=== PATIENT | female | born 1965 | race Caucasian/White ===

== ENCOUNTER 2019-02-18 11:55 | Day surgery (SDC) | payer BC ==
[~2019-02-18 11:55] MED LIST: ceFAZolin 1 GM in Premix Bag 1 BAG IV ONE
--- NOTE | 2019-02-18 13:01 | PCM.PREANE ---
Preanesthetic Assessment - Anesthesia/Transfusion/Family Hx Anesthesia History: Prior Anesthesia Without Reaction Family History of Anesthesia Reaction: No Transfusion History: No Prior Transfusion(s) - Review of Systems General: No Symptoms Pulmonary: No Symptoms Cardiovascular: No Symptoms Gastrointestinal: No Symptoms Other: Reports: Depression - Physical Assessment Vital Signs: Last Vital Signs Temp 96.6 F 02/18/19 12:18 Pulse 76 02/18/19 12:18 Resp 18 02/18/19 12:18 BP 143/87 H 02/18/19 12:18 Pulse Ox 99 02/18/19 12:18 Height: 5 ft Weight: 76.657 kg ASA Class: 2 Mental Status: Alert & Oriented x3 Airway Class: Mallampati = 2 Dentition: Reports: Dentures (upper) ROM/Head Extension: Full Lungs: Clear to Auscultation, Normal Respiratory Effort Cardiovascular: Regular Rate, Regular Rhythm - Allergies Allergies/Adverse Reactions: Allergies Allergy/AdvReac Type Severity Reaction Status Date / Time adhesive tape Allergy Rash Verified 02/17/19 08:41 aloe vera [From Dermoplast] Allergy Blisters Verified 02/17/19 08:41 benzocaine [From Dermoplast] Allergy Blisters Verified 02/17/19 08:41 lanolin [From Dermoplast] Allergy Blisters Verified 02/17/19 08:41 losartan Allergy Nausea Verified 02/17/19 08:41 - Blood Blood Available: No - Anesthesia Plan Pre-Op Medication Ordered: None - Acknowledgements Anesthesia Type Planned: MAC Pt an Appropriate Candidate for the Planned Anesthesia: Yes Alternatives and Risks of Anesthesia Discussed w Pt/Guardian: Yes Pt/Guardian Understands and Agrees with Anesthesia Plan: Yes PreAnesthesia Questionnaire HEENT History: Reports: Other (See Below) Other HEENT History: wears glasses, upper denture Cardiovascular History: Reports: Hypertension Respiratory History: Reports: Asthma Gastrointestinal History: Reports: Chronic Constipation, GERD Genitourinary History: Reports: None SOAP MIXER History: Reports: , Prolapsed Uterus Musculoskeletal History: Reports: Back Pain, Chronic, Osteoarthritis Other Musculoskeletal History: DDD, Neurological History: Reports: Other (See Below) Other Neuro History: restless leg syndrome Psychiatric History: Reports: Anxiety, Depression Endocrine/Metabolic History: Reports: Hypothyroidism, Obesity/BMI 30+ Hematologic History: Reports: None Immunologic History: Reports: None Oncologic (Cancer) History: Reports: None Dermatologic History: Reports: None - Past Surgical History Head Surgeries/Procedures: Reports: None HEENT Surgical History: Reports: None Cardiovascular Surgical History: Reports: None Respiratory Surgical History: Reports: None GI Surgical History: Reports: None Female Surgical History: Reports: Other (See Below) Other Female Surgeries/Procedures: rectocele and entrocele repair for prolapse Endocrine Surgical History: Reports: None Neurological Surgical History: Reports: None Musculoskeletal Surgical History: Reports: Hip Replacement Other Musculoskeletal Surgeries/Procedures:: lizzeth hip replacement Oncologic Surgical History: Reports: None Dermatological Surgical History: Reports: None - SUBSTANCE USE Smoking Status *Q: Current Every Day Smoker Tobacco Use Within Last Twelve Months: Cigarettes Recreational Drug Use History: No - HOME MEDS Home Medications: Home Meds Albuterol Sulfate [Proair Hfa] 1 - 2 puff INH ASDIRECTED PRN 02/17/19 [History] Celecoxib 200 mg PO DAILY 02/17/19 [History] Cyanocobalamin (Vitamin B12) [Vitamin B12] 1,000 mcg PO DAILY 02/17/19 [History] Diclofenac Sodium [Voltaren 1% Gel] 1 applic TOP ASDIRECTED PRN 02/17/19 [ History] Diclofenac Sodium [Voltaren] 50 mg PO BID PRN 02/17/19 [History] Fluticasone Propionate [Flonase Allergy Relief] 1 spray NASBOTH ASDIRECTED PRN 02/17/19 [History] Fluticasone Propionate [Flovent HFA] 2 puff INH BID 02/17/19 [History] Gabapentin [Neurontin] 3 tab PO BEDTIME 02/17/19 [History] Gabapentin [Neurontin] 600 mg PO ACLUNCH 02/17/19 [History] Ibuprofen 800 mg PO Q8H PRN 02/17/19 [History] Irbesartan 75 mg PO DAILY 02/17/19 [History] Levothyroxine Sodium 137 mcg PO DAILY 02/17/19 [History] Linaclotide [Linzess] 290 mcg PO ASDIRECTED PRN 02/17/19 [History] Minocycline HCl 100 mg PO BID 02/17/19 [History] Mylanta 1 dose PO ASDIRECTED PRN 02/17/19 [History] Omeprazole 40 mg PO DAILY PRN 02/17/19 [History] Pramipexole Di-HCl [Pramipexole Dihydrochloride] 2 tab PO BEDTIME 02/17/19 [ History] amLODIPine [Norvasc] 5 mg PO DAILY 02/17/19 [History] buPROPion [Wellbutrin] 100 mg PO DAILY 02/17/19 [History] busPIRone HCl [Buspirone HCl] 5 mg PO TID 02/17/19 [History] hydroCHLOROthiazide [Hydrochlorothiazide] 25 mg PO ASDIRECTED 02/17/19 [History] traZODone HCl [Trazodone HCl] 1 - 2 tab PO BEDTIME PRN 02/17/19 [History] - CURRENT (IN HOUSE) MEDS Current Meds: Current Medications Discontinued Medications Cefazolin Sodium/Dextrose 1 gm (/ Premix) 50 mls @ 100 mls/hr IV ONETIME ONE Stop: 02/18/19 09:51 Lidocaine HCl (Xylocaine-Mpf 1%) 10 ml INJECT ONETIME ONE Stop: 02/18/19 09:16
[2019-02-18] MEDS ORDERED: fentaNYL 100 MCG/2 ML SDV ONE (13:28)
[2019-02-18] MEDS ORDERED: Propofol 200 MG/20 ML SDV ONE (13:28)
[2019-02-18] MEDS ORDERED: Ondansetron 4 MG/2 ML SDV ONE (13:28)
[2019-02-18] MEDS ORDERED: Midazolam 1 MG/ML 2 ML SDV ONE (13:29)
[2019-02-18] MEDS ORDERED: ceFAZolin 1 GM Vial ONE (13:41)
[2019-02-18] MEDS ORDERED: Sodium Chloride 0.9% 20 ML ONE (13:41)
[2019-02-18] MEDS ORDERED: Lidocaine 1% 20 ML MDV ONE (13:48)
--- NOTE | 2019-02-18 14:39 | PCM.POSTAN ---
POST ANESTHESIA ASSESSMENT - MENTAL STATUS Mental Status: Alert - VITAL SIGNS Vital Signs: Last Vital Signs Temp 35.9 C 02/18/19 12:18 Pulse 76 02/18/19 12:18 Resp 18 02/18/19 12:18 BP 143/87 H 02/18/19 12:18 Pulse Ox 99 02/18/19 12:18 - RESPIRATORY Respiratory Status: Respiratory Rate WNL - CARDIOVASCULAR CV Status: Pulse Rate WNL - GASTROINTESTINAL GI Status: No Symptoms - PAIN Pain Score: 4 (Pressure lumbar area) - OBSERVATIONS Free Text/Narrative:: Doing well. No problems noted post. Direct admit to DS.
--- NOTE | 2019-02-18 14:45 | PCM48HPAN ---
Post Anesthesia Note - EVALUATION WITHIN 48HRS OF ANESTHETIC Vital Signs in Normal Range: Yes Patient Participated in Evaluation: Yes Respiratory Function Stable: Yes Airway Patent: Yes Cardiovascular Function Stable: Yes Hydration Status Stable: Yes Pain Control Satisfactory: Yes Nausea and Vomiting Control Satisfactory: Yes Mental Status Recovered: Yes Vital Signs: Last Vital Signs Temp 97.3 F 02/18/19 14:31 Pulse 63 02/18/19 14:31 Resp 16 02/18/19 14:31 BP 125/68 02/18/19 14:31 Pulse Ox 100 02/18/19 14:31 - COMMENTS/OBSERVATIONS Free Text/Narrative:: direct back to phase 2, no phase 1
[2019-02-18] MEDS ORDERED: Lactated Ringers 1,000 ML IV SCH (15:00)
[2019-02-18] MEDS ORDERED: Acetaminophen/HYDROcodone 325-10 MG Tab PO ONE (15:35)
--- NOTE | 2019-02-18 16:24 | CR ---
Lumbar spine: Six fluoroscopic spot views utilizing C-arm device was obtained centered to the lower thoracic spine. Study shows placement of electrodes stimulating wires which terminate at the T7- T9 position. No additional finding is seen. Impression: Procedural study as noted above. Diagnostic code #2 MTDD
--- NOTE | 2019-02-18 22:03 | OR ---
SURGEON: Angélica Perkins D.O. DATE OF PROCEDURE: 02/18/2019 PRIMARY SURGEON: Angélica Perkins D.O. ASSISTANTS: OR staff present: 1. Daya Duff CST. 2. Tay Mishra CRNA. 3. Brayan Fuentes RN. 4. Hina Newman RN. 5. Environmental Engineering AssistantElissa RT. WOUND CLASS: I. PREOPERATIVE DIAGNOSES: 1. Lumbar radiculopathy 2. Lumbar degenerative disk disease. 3.Peripheral neuropathy of bilateral lower extremities. 4.Lumbar spondylosis. 5. Thoracolumbar scoliosis. 6.Chronic thoracolumbar back pain POSTOPERATIVE DIAGNOSES: same PROCEDURES PERFORMED: 1. [employer] Infinion 16, 50 cm 16 contact trial lead placed to the top of T7 on the left. 2. [employer] Infinion 16, 50 cm 16 contact trial lead placed to the top of T7 on the right. 3. Fluoroscopic guidance for needle placement. 4. Local with oral Valium for sedation. PREOPERATIVE PAIN: 8/10. POSTOPERATIVE PAIN: All areas of pain covered by spinal cord stimulation therapy. PLAN: Follow up for reprogramming in the clinic tomorrow morning at 8:30. ANESTHESIA: MAC SCREENING QUESTIONS: The patient answered no to all the following questions: 1. Are you allergic to iodine, Betadine, or latex? 2. Do you have a bleeding disorder? 3. Are you on anti-inflammatories or blood thinners? 4. Are you ? 5. Do you have any current local or systemic infections? 6. Do you have any joint replacements, heart valve replacements or a pacemaker? DESCRIPTION OF PROCEDURE: The patient had the procedure thoroughly explained including risks, benefits, and alternatives. Consent was signed in my clinic indicating understanding and willingness to proceed. The patient presented to [facility] [place] and was escorted to the dressing room to disrobe and change into a hospital gown. Preoperative history and screening were performed by the nurse. Vital signs were taken and stable. The patient was set up with an IV prior to the procedure. The patient was brought back to the procedure room and placed in the prone position on the procedure room table. A pillow was placed under the abdomen in order to flatten the lumbar lordosis. The patient was positioned comfortably and there was no evidence of infection at the sites of needle insertion. The back was prepped with ChloraPrep and sterilely draped. All personnel in the operating room were dressed in appropriate attire including surgical scrubs, head and shoe covers. This was to ensure sterility while in the treatment room. During the time fluoroscopy was in use, all personnel in the operating room wore lead gan with thyroid collars. Sterile technique was used during the procedure. Prior to the start of the procedure, Ancef 1 gram, prophylactic antibiotic was administered IV. Skeletal landmarks were identified under fluoroscopic guidance. At all insertion sites, the skin and soft tissues were anesthetized with 2% lidocaine preservative-free with a sterile 27-gauge 1-1/2 inch needle. The epidural space was entered with a 14-gauge Tuohy epidural needle with loss-of- resistance technique. Under live fluoroscopic guidance, the 16 standard contact lead electrodes were advanced approximately to the midline at the top of the T7 vertebral body on the left and then the right. No CSF, no heme, and no paresthesia were noted. Testing by the neuromodulation clinical specialist revealed appropriate coverage of the patient's normal areas of pain. The leads were then secured to the skin with occlusive dressing. No complications were noted throughout the procedure and vital signs were stable. Then the patient was brought to the recovery room in stable condition. At that time, the patient had additional stimulation patterns programmed which covered all the normal areas of pain. The patient tolerated the procedure well and was released home with postoperative instructions for follow up in the clinic. The patient will fill out a pain diary throughout the week of the spinal cord stimulator trial. Additionally, prior to discharge, postoperative instructions were given to the patient and the patient voiced understanding, including understanding of those signs and symptoms that would require emergency care. TARA / CRUZ /[id number] ANETA
== END 2019-02-18 16:15 | disposition home or self-care (01) ==
LOC: MW.SDS 11:55
PROVIDERS: ATTEND Anesthesiology
DX: M51.16 Intervertebral disc disorders with radiculopathy, lumbar region (principal); M47.26 Other spondylosis with radiculopathy, lumbar region; M41.55 Other secondary scoliosis, thoracolumbar region; M19.90 Unspecified osteoarthritis, unspecified site; F32.9 Major depressive disorder, single episode, unspecified; K21.9 Gastro-esophageal reflux disease without esophagitis; F17.210 Nicotine dependence, cigarettes, uncomplicated; Z91.048 Other nonmedicinal substance allergy status; Z88.8 Allergy status to other drugs, medicaments and biological substances; Z79.899 Other long term (current) drug therapy
CPT/HCPCS: 63650; 76000; A9270; C1778; J0690; J2250; J2405; J2704; J3010; J7120; J2001

== ENCOUNTER 2025-03-30 16:00 | Emergency (ER) | payer BC ==
[2025-03-30] MEDS: Diphtheria,Pertussis(Acell),Tetanus Vaccine 0.5 ML Syringe IM ONE (17:00)
[2025-03-30] MEDS: Acetaminophen/HYDROcodone 325-10 MG Tab PO ONE (17:01)
== END 2025-03-30 18:11 | disposition home or self-care (01) ==
LOC: MW.ED 16:00
DX: S60.032A Contusion of left middle finger without damage to nail, initial encounter (principal); Z23 Encounter for immunization; I10 Essential (primary) hypertension; K21.9 Gastro-esophageal reflux disease without esophagitis; E66.9 Obesity, unspecified; E03.9 Hypothyroidism, unspecified; Z75.3 Unavailability and inaccessibility of health-care facilities; Z88.8 Allergy status to other drugs, medicaments and biological substances; Z91.048 Other nonmedicinal substance allergy status; Z79.890 Hormone replacement therapy; Z79.899 Other long term (current) drug therapy; Z68.29 Body mass index [BMI] 29.0-29.9, adult; W23.0XXA Caught, crushed, jammed, or pinched between moving objects, initial encounter
CPT/HCPCS: 73120; 90471; 90715; 99283; A9270